=== PATIENT | female | born 1985 | race Caucasian/White ===

== ENCOUNTER 2016-08-16 11:15 | Emergency (ER) | payer OTHER ==
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
[~2016-08-16 11:15] MED LIST: ACETAMINOPHEN PO; FERROUS SULFATE PO; NO MEDICATIONS; TYLOX 5-500 CA1 EACH PO
== END 2016-08-16 11:45 | disposition home or self-care (01) ==
LOC: CFTX 11:15
DX: S06.0X9A Concussion with loss of consciousness of unspecified duration, initial encounter (principal); S00.93XA Contusion of unspecified part of head, initial encounter; F17.210 Nicotine dependence, cigarettes, uncomplicated; V49.40XA Driver injured in collision with unspecified motor vehicles in traffic accident, initial encounter; Y92.488 Other paved roadways as the place of occurrence of the external cause
CPT/HCPCS: 70450; 99284